=== PATIENT | male | born 1950 | race Caucasian/White ===

== ENCOUNTER 2019-02-02 10:13 | Inpatient (IN) | payer MEDICARE, BC ==
[~2019-02-02] VITALS: Ht 175.3 cm; Wt 93.4 kg
--- NOTE | 2019-02-02 10:31 | NUR ---
PT BIB SELF C/O Abdominal pain, which started this morning (epigastric pain), PT IS AAOX4, NOT IN RESPIRATORY DISTRESS, V/S STABLE, KEPT RESTED AND COMFORTABLE, WILL CONTINUE TO MONITOR.
[2019-02-02] MEDS ORDERED: ATOR20TA PO (10:38)
--- NOTE | 2019-02-02 10:46 | NUR ---
SEEN AND EXAMINED BY DR. BUSTAMANTE
[2019-02-02] MEDS ORDERED: PANTOPRAZOLE 40 MG VIAL ONE (10:59)
[2019-02-02] MEDS ORDERED: ONDANSETRON HCL/PF 4 MG/2 ML VIAL ONE ×2 (10:59→12:53)
[2019-02-02] MEDS ORDERED: MAG HYDROX/AL HYDROX/SIMETH 30 ML UDC ONE (10:59)
[2019-02-02 11:00] LABS: BASOPHILS # (AUTO) 0.1 /CMM (0.0-0.2); BASOPHILS % (AUTO) 0.4 % (0.0-2.0); HEMATOCRIT 45 % (39-51); HEMOGLOBIN 15.5 g/dL (13.5-17.5); LYMPHOCYTES # (AUTO) 0.8 /CMM (0.8-4.8); LYMPHOCYTES % (AUTO) 4.2 % (20.0-44.0); MEAN CORPUSCULAR HGB CONC 35 g/dl (31.0-36.0); MEAN CORPUSCULAR VOLUME 90 fL (80-96); MONOCYTES # (AUTO) 0.7 /CMM (0.1-1.30); MONOCYTES % (AUTO) 3.9 % (2.0-12.0); NEUTROPHILS # (AUTO) 16.8 /CMM (1.8-8.9); NEUTROPHILS % (AUTO) 91.5 % (43.0-81.0); PLATELET COUNT (AUTO) 260 /CMM (150-450); RED BLOOD CELL COUNT(AUTO) 4.97 MIL/uL (4.5-6.0); WHITE BLOOD COUNT (AUTO) 18.4 K/uL (4.3-11.0)
[2019-02-02] MEDS ORDERED: MAG HYDROX/AL HYDROX/SIMETH 30 ML UDC PO ONE (11:00)
[2019-02-02] MEDS ORDERED: ONDANSETRON HCL/PF 4 MG/2 ML VIAL IVP ONE ×2 (11:00→13:00)
[2019-02-02] MEDS ORDERED: PANTOPRAZOLE 40 MG VIAL IV ONE (11:00)
[2019-02-02] MEDS ORDERED: IV NS 0.9% 500 ML BAG IV ONE (11:00)
--- NOTE | 2019-02-02 11:00 | NUR ---
IV LINE ESTABLISHED.
[2019-02-02 11:07] LABS: CALCIUM, SERUM 9.3 mg/dL (8.5-10.1); CARBON DIOXIDE 28 mmol/L (21-32); CHLORIDE 102 mmol/L (98-107); CREATININE 1.2 mg/dL (0.6-1.3); GLUCOSE 116 mg/dL (74-106); POTASSIUM 4.1 mmol/L (3.5-5.1); SODIUM SERUM 138 mmol/L (136-145); UREA NITROGEN, BLOOD 14 mg/dL (7-18)
--- NOTE | 2019-02-02 11:08 | NUR ---
PT IS WHEELED TO CT SCAN VIA [facility].
[2019-02-02 11:14] LABS: ALANINE AMINOTRANSFERASE 34 U/L (12-78); ALBUMIN 3.9 g/dL (3.4-5.0); ALKALINE PHOSPHATASE 64 U/L (46-116); ASPARTATE AMINOTRANSFERASE 23 U/L (15-37); BILIRUBIN,DIRECT 0.1 mg/dL (0.0-0.2); BILIRUBIN,TOTAL 0.9 mg/dL (0.2-1.0); LIPASE 115 U/L (73-393)
[2019-02-02] MEDS ORDERED: LEVOFLOXACIN 750 MG /D5W 150ML 750 MG in PREMIX 1 EA IV SCH (12:00)
[2019-02-02] MEDS ORDERED: FLAGYL/NS RTU 500 MG/100 ML PIGGYBACK IV ONE (12:00)
[2019-02-02] MEDS ORDERED: LEVOFLOXACIN 750 MG /D5W 150ML 750 MG in PREMIX 1 EA IV ONE (12:02)
--- NOTE | 2019-02-02 12:12 | NUR ---
[facility]
[2019-02-02] MEDS ORDERED: MORPHINE SULFATE INJ 4 MG/ML DISP.SYRIN ONE (12:54)
[2019-02-02] MEDS ORDERED: MORPHINE SULFATE INJ 2 MG/ML DISP.SYRIN IV ONE (13:00)
--- NOTE | 2019-02-02 13:09 | NUR ---
REPORT GIVEN TO STEVAN NEGRETE FOR STEPHANIE.
[2019-02-02 13:20] VITALS: BP 115/69
--- NOTE | 2019-02-02 13:20 | NUR ---
m/s game show host: admission admitted this 68 year old male pt from [facility] with dx: acute cholecystitis and abdominal pain. awake, a/ox4; ambulatory. still with abdominal discomfort. pt made aware re: possible hida scan test today and must be off morphine for at least 4 hours, pt verbalized understanding. at bedside. oriented to room and surroundings. vss, afebrile. instructed to call for assistance.
--- NOTE | 2019-02-02 13:20 | NUR ---
m/carol reference services head: notes consent obtained for stat hida scan. called ni ([employer]) and will call catih (nuclear med) as stated. Addendum: 02/02/19 at 1511 by CADEN GARCIA HYSTER MACHINE OPERATOR above charting error in time.
--- NOTE | 2019-02-02 13:35 | NUR ---
m/carol baxtern: notes cathi (nuclear med) at bedside and explained the procedure and verbalized understanding. Addendum: 02/02/19 at 1511 by CADEN GARCIA LVN above charting error in time.
--- NOTE | 2019-02-02 13:58 | NUR ---
m/s ginseng farmer: md visit seen and examined by dr. mccormick at this time and updated plan of care. pt for gi and surgical consult. at bedside. all concerns and questions answered by md.
[2019-02-02] MEDS ORDERED: MAGNESIUM HYDROXIDE 30 ML UDC PO PRN (14:00)
[2019-02-02] MEDS ORDERED: ACETAMINOPHEN 325 MG TABLET PO PRN (14:00)
[2019-02-02] MEDS ORDERED: MORPHINE SULFATE INJ 2 MG/ML DISP.SYRIN IV PRN (14:00)
[2019-02-02] MEDS ORDERED: HYDROCODONE/APAP 5/325MG 1 EACH TABLET PO PRN (14:00)
[2019-02-02] MEDS ORDERED: ONDANSETRON HCL/PF 4 MG/2 ML VIAL IVP PRN (14:00)
[2019-02-02] MEDS ORDERED: Z GUARD REMEDY 2 OZ OINT TP PRN (14:00)
[2019-02-02] MEDS ORDERED: MAG HYDROX/AL HYDROX/SIMETH 30 ML UDC PO PRN (14:00)
--- NOTE | 2019-02-02 14:20 | NUR ---
m/s volunteer assistant: notes consent obtained for stat hida scan. called ni (radiation protection engineer) and will call cathi (nuclear med) as stated.
--- NOTE | 2019-02-02 14:30 | NUR ---
m/s travel professional: gi consult seen and examined by latesha (jean-claude) at this time. at bedside. instructed to call for assistance.
--- NOTE | 2019-02-02 14:35 | NUR ---
m/s jboss architect: marta winkler (nuclear med) at bedside and explained the procedure and verbalized understanding.
[2019-02-02] MEDS: IV D5W 1,000 ML IV PRN (14:59)
[2019-02-02 16:00] VITALS: BP 119/74
--- NOTE | 2019-02-02 16:45 | NUR ---
m/s education program specialist: notes pt went for hida scan via w/c accompanied by cathi (nuclear med tech) at this time. pt remains npo. will continue to monitor.
--- NOTE | 2019-02-02 18:25 | NUR ---
m/s glass unloading equipment tender: notes pt came back and report per cathi ([employer]), will bring pt back at 2030 due to unable to see his gallbladder, pt aware. pt remains npo. pt feels more better pain noguera as stated. iv fluids connected. instructed to call for assistance. will continue to monitor.
[2019-02-02] MEDS: METRONIDAZOLE 500MG/ NS 100ML 250 MG in PREMIX 1 EA IV SCH (18:28)
--- NOTE | 2019-02-02 19:00 | NUR ---
m/s physical therapy resident: notes bedside report given to luisa (rn) for continuity of care.
--- NOTE | 2019-02-02 19:10 | NUR ---
CHANGE OF SHIFT REPORT Received patient in bed, awake, A/O x 4 appears calm, reports abdomen discomfort, denies nausea, no vomiting. NPO, IVF infusing. HIDA scan to complete today. Will follow up. Instruction to use call light for assistance, verbalized understandin.
[2019-02-02 20:00] VITALS: BP 123/73
--- NOTE | 2019-02-02 23:55 | NUR ---
HIDA SCAN RESULT NM HIDA scan resulted. Notified NOEMI Mueller with result, per COSTUME TECHNICIAN she will inform Dr. Rogers. Patient with stable VS, denies nausea, no vomiting.
[2019-02-03] MEDS: METRONIDAZOLE 500MG/ NS 100ML 250 MG in PREMIX 1 EA IV SCH ×2 (00:43→05:45)
[2019-02-03] MEDS: IV D5W 1,000 ML IV PRN ×2 (03:23→18:00)
--- NOTE | 2019-02-03 06:06 | NUR ---
END OF SHIFT REPORT Patient in bed, stable oxygen saturation on RA. NPO, IVF infusing maintained at 125 ml/hr. On IV abx as scheduled with no adverse side effect. No BM this sfift, reports passing gas. VSS. Epigastric pain controlled with PRN Morphine. Denies nausea, no vomiting. Slept well, maintained safety. HIDA scan resulted, CONDITIONING ROOM WORKER Ami aware. Maintained safety. Will endorse to oncoming RN for continuity of care.
[2019-02-03 06:30] LABS: BASOPHILS % (AUTO) 0.2 % (0.0-2.0); EOSINOPHILS % (AUTO) 0.7 % (0.0-6.0); HEMATOCRIT 41 % (39-51); HEMOGLOBIN 14.4 g/dL (13.5-17.5); LYMPHOCYTES # (AUTO) 2.1 /CMM (0.8-4.8); LYMPHOCYTES % (AUTO) 14.8 % (20.0-44.0); MEAN CORPUSCULAR HGB CONC 35 g/dl (31.0-36.0); MEAN CORPUSCULAR VOLUME 90 fL (80-96); MONOCYTES # (AUTO) 1.5 /CMM (0.1-1.30); MONOCYTES % (AUTO) 10.8 % (2.0-12.0); NEUTROPHILS # (AUTO) 10.5 /CMM (1.8-8.9); NEUTROPHILS % (AUTO) 73.5 % (43.0-81.0); PLATELET COUNT (AUTO) 247 /CMM (150-450); RED BLOOD CELL COUNT(AUTO) 4.58 MIL/uL (4.5-6.0); WHITE BLOOD COUNT (AUTO) 14.3 K/uL (4.3-11.0)
[2019-02-03 06:47] LABS: CALCIUM, SERUM 8.4 mg/dL (8.5-10.1); CREATININE 1.2 mg/dL (0.6-1.3); MAGNESIUM 1.7 mg/dL (1.8-2.4); PHOSPHORUS 3.5 mg/dL (2.5-4.9); POTASSIUM 3.6 mmol/L (3.5-5.1)
--- NOTE | 2019-02-03 07:31 | NUR ---
MS/RN OPENING NOTE PATIENT IN BED IN STABLE CONDITION. A/O X 3. NO SIGNS OF ACUTE DISTRESS. NO COMPLAIN OF PAIN OR DISCOMFORT AT THIS TIME. NPO STATUS AT THIS TIME. TOLERATING WELL. ON IV FLUIDS D5W AT 125MLS/HR. ALL NEEDS ATTENDED TO AT THIS TIME. CALL LIGHT WITHIN REACH. WILL CONTINUE TO MONITOR TO ENSURE SAFETY.
--- NOTE | 2019-02-03 07:58 | NUR ---
MS/RN SEEN BY DR MAYES AND DISCUSSED HIDA SCAN RESULTS WITH PATIENT, AND HE STILL WANTS ATB AT THIS TIME AND REFUSING SURGERY PER DR MAYES.
[2019-02-03 08:00] VITALS: BP 118/70
--- NOTE | 2019-02-03 08:09 | NUR ---
MS/RN SPOKE WITH TIFFANY FROM PHARM AND REMINDED PATIENT HAS IV NEXIUM DUE AT 9AM AND THERE IS NOTHING AVAILABLE IN CASEETTE PER TIFFANY WILL SEND IT.
[2019-02-03] MEDS ORDERED: PANTOPRAZOLE 40 MG VIAL IV SCH (09:00)
[2019-02-03] MEDS: NEXIUM 40 MG VIAL IV SCH (09:07)
[2019-02-03] MEDS: Magnesium 1GM/D5W 100ML PREMIX 100 ML IV SCH ×2 (11:06→12:17)
--- NOTE | 2019-02-03 12:22 | NUR ---
MS/RN SPOKE WITH NINFA FROM PHARM AND REMINDED FLAGYL 500MG DOSE WAS DUE AT 12PM AND MEDICATION AVAILABLE IN MEDROOM IS PREVIOUS FLAGYL 250MG. PER NINFA, "WILL SEND IT"
[2019-02-03] MEDS: LEVOFLOXACIN 500 MG /D5W 100ML 500 MG in PREMIX 1 EA IV SCH (13:17)
[2019-02-03] MEDS: METRONIDAZOLE 500MG/ NS 100ML 500 MG in PREMIX 1 EA IV SCH ×3 (13:17→23:04)
--- NOTE | 2019-02-03 17:37 | NUR ---
MS/RN SEEN BY NOEMI SCHROEDER SURGEON WITH ORDERS FOR CBC CMP MG PHOS IN AM FOR F/U. PATIENT AWARE. Addendum: 02/03/19 at 1830 by BEN GA RN SEEN BY DR ALYSON SCHROEDER
--- NOTE | 2019-02-03 18:30 | NUR ---
MS/RN CLOSING NOTE PATIENT IN BED IN STABLE CONDITION. A/O X 4. NO SIGNS OF ACUTE DISTRESS. NO COMPLAIN OF PAIN OR DISCOMFORT. NPO STATUS. ON D5W AT 125MLS/HR TOLERATING WELL. ALL NEEDS ATTENDED TO. CALL LIGHT WITHIN REACH. WILL ENDORSE TO NEXT SHIFT FOR CONTINUITY OF CARE.
--- NOTE | 2019-02-03 19:00 | NUR ---
MS RN NOTE RECEIVED PT IN STABLE CONDITION, A&O X4, ABLE TO MAKE NEEDS KNOWN. CURRENTLY IN BED WATCHING TV. NO SIGNS OF SOB OR DISTRESS, NO C/O PAIN. IV IN PLACE WITH IVF INFUSING. ALL CURRENT NEEDS MET. BED LOW, LOCKED, UPPER RAILS UP, AND CALL LIGHT WITHIN REACH. WILL CONT. TO MONITOR.
[2019-02-03 20:07] VITALS: BP 116/69
[2019-02-03] MEDS: ZOLPIDEM TARTRATE 5 MG TABLET PO PRN ×2 (23:35→23:36)
--- NOTE | 2019-02-03 23:37 | NUR ---
MS RN NOTE PULLED BECKY FROM [facility], PT. IS NPO WILL RETURN MED TO [facility].
[2019-02-04] MEDS: IV D5W 1,000 ML IV PRN (03:04)
[2019-02-04] MEDS: METRONIDAZOLE 500MG/ NS 100ML 500 MG in PREMIX 1 EA IV SCH ×2 (05:00→12:14)
--- NOTE | 2019-02-04 06:14 | NUR ---
MS RN NOTE PT IN STABLE CONDITION, A&O X4, ABLE TO MAKE NEEDS KNOWN. CURRENTLY ASLEEP IN BED, EASILY AROUSABLE. NO SIGNS OF SOB OR DISTRESS, NO C/O PAIN. IV IN PLACE WITH IVF INFUSING. ALL CURRENT NEEDS MET. BED LOW, LOCKED, UPPER RAILS UP, AND CALL LIGHT WITHIN REACH. WILL CONT. TO MONITOR AND ENDORSE TO NEXT SHIFT FOR STEPHANIE.
[2019-02-04 06:48] LABS: BASOPHILS % (AUTO) 0.3 % (0.0-2.0); EOSINOPHILS % (AUTO) 1.7 % (0.0-6.0); HEMATOCRIT 41 % (39-51); HEMOGLOBIN 14.6 g/dL (13.5-17.5); LYMPHOCYTES # (AUTO) 1.7 /CMM (0.8-4.8); MEAN CORPUSCULAR HGB CONC 36 g/dl (31.0-36.0); MEAN CORPUSCULAR VOLUME 90 fL (80-96); MONOCYTES # (AUTO) 0.9 /CMM (0.1-1.30); MONOCYTES % (AUTO) 10.1 % (2.0-12.0); NEUTROPHILS # (AUTO) 6.3 /CMM (1.8-8.9); NEUTROPHILS % (AUTO) 68.9 % (43.0-81.0); PLATELET COUNT (AUTO) 231 /CMM (150-450); RED BLOOD CELL COUNT(AUTO) 4.58 MIL/uL (4.5-6.0); WHITE BLOOD COUNT (AUTO) 9.1 K/uL (4.3-11.0)
--- NOTE | 2019-02-04 07:20 | NUR ---
M/S RN NOTES PATIENT ALERT AND ORIENTED X4, NO RESPIRATORY DISTRESS, NO C/O PAIN AT THIS TIME. NO C/O NAUSEA/VOMITING. SKIN WARM TO TOUCH. PATIENT'S IV ACCESS SITE INTACT AND PATENT. STILL ON NPO STATUS. PATIENT'S NEEDS ATTENDED. BED ON LOWEST LOCKED POSITION, CALL LIGHT WITHIN REACH. WILL CONTINUE TO MONITOR.
[2019-02-04 07:26] LABS: ALBUMIN 3.2 g/dL (3.4-5.0); BILIRUBIN,TOTAL 0.6 mg/dL (0.2-1.0); CALCIUM, SERUM 8.7 mg/dL (8.5-10.1); CREATININE 1.3 mg/dL (0.6-1.3); PHOSPHORUS 2.8 mg/dL (2.5-4.9); POTASSIUM 3.7 mmol/L (3.5-5.1); TOTAL PROTEIN, SERUM 6.3 g/dL (6.4-8.2)
--- NOTE | 2019-02-04 07:40 | NUR ---
M/S RN NOTES SPOKE TO DR. MAYES THAT PATIENT DID NOT WANT A SURGERY AFTER SEEING THE RESULTS OF THE LABS DONE THIS MORNING. PATIENT STATED IF THE WBC ARE IN NORMAL RANGE HE DID NOT WANT TO GO THROUGH SURGERY AND WOULD LIKE TO GO HOME.
[2019-02-04 08:00] VITALS: BP 107/73
[2019-02-04] MEDS ORDERED: HYDR-3972 PO (08:41)
[2019-02-04] MEDS ORDERED: PANT40TA2 PO (08:41)
[2019-02-04] MEDS ORDERED: METR500T PO (08:41)
[2019-02-04] MEDS ORDERED: LEVO500T90 PO (08:41)
[2019-02-04] MEDS: NEXIUM 40 MG VIAL IV SCH (09:23)
[2019-02-04] MEDS: LEVOFLOXACIN 500 MG /D5W 100ML 500 MG in PREMIX 1 EA IV SCH (12:00)
--- NOTE | 2019-02-04 13:00 | NUR ---
M/S FORGE HEATER NOTES PATIENT DISCHARGED TODAY IN STABLE CONDITION. PATIENT'S VSS, NO RESPIRATORY DISTRESS, NO C/O PAIN. PATIENT GIVEN DISCHARGE INSTRUCTIONS, VERBALIZED UNDERSTANDING. SKIN ASSESSED, NO SKIN BREAKDOWN, TAKEN PHOTO OF RT HIP AND PLACED IN CHART. IV REMOVED AND APPLIED PRESSURE DRESSING. BELONGINGS ACCOUNTED FOR AND SIGNED. PATIENT LEFT VIA WHEELCHAIR AND ESCORTED BY STAFF AND . PATIENT LEFT VIA PRIVATE CAR WITH RUFINO.
== END 2019-02-04 13:15 | disposition home or self-care (01) | DRG 446 ==
LOC: ER 10:17 → MED 12:14
PROVIDERS: ADMIT Student in an Organized Health Care Education/Training Program; ATTEND Student in an Organized Health Care Education/Training Program
DX: K81.0 Acute cholecystitis (principal); K57.90 Diverticulosis of intestine, part unspecified, without perforation or abscess without bleeding; E86.0 Dehydration; E78.5 Hyperlipidemia, unspecified; K21.9 Gastro-esophageal reflux disease without esophagitis; K40.90 Unilateral inguinal hernia, without obstruction or gangrene, not specified as recurrent; K42.9 Umbilical hernia without obstruction or gangrene; Z88.0 Allergy status to penicillin; Z88.2 Allergy status to sulfonamides; Z79.899 Other long term (current) drug therapy; S70.11XA Contusion of right thigh, initial encounter; N28.1 Cyst of kidney, acquired; Z68.30 Body mass index [BMI] 30.0-30.9, adult; Y93.59 Activity, other involving other sports and athletics played individually; D72.829 Elevated white blood cell count, unspecified
CPT/HCPCS: 36415; 71045-TC; 78226; 80048-TC; 80053-TC; 80061-TC; 80076-TC; 83690-TC; 83735-TC; 84100-TC; 84484-TC; 85025-TC; 87081-TC; A4216; A9537; C9113; G0378; J1956; J2270; J2405; J3475; J3490; J7030; J7040; J7060; J7070

== ENCOUNTER 2025-02-21 10:22 | Emergency (ER) | payer MEDICARE, BC ==
[~2025-02-21] VITALS: Ht 175.3 cm; Wt 90.7 kg
[~2025-02-21 10:22] MED LIST: ATOR20TA PO; HYDR-3972 PO; LEVO500T90 PO; METR500T PO; PANT40TA2 PO
[2025-02-21 10:39] VITALS: TEMP 98.3
[2025-02-21 12:36] LABS: PLATELET COUNT (AUTO) 294 K/uL (150-450); RED BLOOD CELL COUNT(AUTO) 4.74 MIL/uL (4.5-6.0); RED CELL DISTRIBUTION WIDTH 13.4 % (11.5-15.0); WHITE BLOOD COUNT (AUTO) 11.1 K/uL (4.3-11.0)
[2025-02-21 12:48] LABS: INR 1.05 (0.91-1.10)
[2025-02-21 12:53] LABS: CALCIUM, SERUM 8.5 mg/dL (8.5-10.1); CREATININE 1.3 mg/dL (0.6-1.3); SODIUM SERUM 137 mmol/L (136-145); UREA NITROGEN, BLOOD 20 mg/dL (7-18)
[2025-02-21 12:58] LABS: ASPARTATE AMINOTRANSFERASE 15 U/L (15-37); TOTAL PROTEIN, SERUM 7.1 g/dL (6.4-8.2)
[2025-02-21 17:00] VITALS: BP 120/68; O2SAT 94
[2025-02-21] MEDS ORDERED: MORPHINE SULFATE INJ 2 MG/ML DISP.SYRIN ONE (17:11)
[2025-02-21] MEDS: MORPHINE SULFATE INJ 2 MG/ML DISP.SYRIN IV ONE (17:19)
== END 2025-02-21 20:15 | disposition short-term general hospital (02) ==
LOC: ER 10:35
DX: I62.00 Nontraumatic subdural hemorrhage, unspecified (principal); Z88.0 Allergy status to penicillin; Z88.2 Allergy status to sulfonamides; Z79.899 Other long term (current) drug therapy
CPT/HCPCS: 99291; 96374; 70450; 85025; 80048; 80076; 36415; 85730; J2270